=== PATIENT | male | born 1970 | race Caucasian/White ===

== ENCOUNTER 2017-08-28 08:24 | Observation (INO) | payer BC ==
[~2017-08-28] VITALS: Ht 177.8 cm; Wt 125.2 kg
[2017-08-28 09:00] VITALS: BP 179/107
[2017-08-28 09:09] VITALS: BP 179/107
[2017-08-28] MEDS: NIFEDIPINE CR 30 MG TAB PO SCH ×2 (10:25→20:54)
[2017-08-28 10:54] LABS: CREATINE KINASE 285 IU/L (30-200)
[2017-08-28 11:20] VITALS: BP 173/94
[2017-08-28] MEDS ORDERED: CARVEDILOL12.5 MG PO (12:10)
[2017-08-28] MEDS ORDERED: XANAX1 MG PO (12:12)
[2017-08-28 15:37] VITALS: BP 150/89
[2017-08-28] MEDS ORDERED: ACETAMINOPHEN 325 MG TAB PO PRN (17:45)
[2017-08-28] MEDS: HYDROCHLOROTHIAZIDE 25 MG TAB PO SCH (17:57)
[2017-08-28] MEDS: FAMOTIDINE 20 MG TAB PO SCH (17:57)
[2017-08-28 18:36] LABS: CREATINE KINASE 297 IU/L (30-200)
[2017-08-28 20:00] VITALS: BP 167/105
[2017-08-29] VITALS: BP 165/86
[2017-08-29] MEDS ORDERED: ZOLPIDEM TARTRATE 5 MG TAB PO PRN (00:15)
[2017-08-29 04:20] VITALS: BP 145/91
[2017-08-29 05:01] VITALS: BP 145/91
[2017-08-29] MEDS ORDERED: ASPIRIN325 MG PO (07:02)
[2017-08-29] MEDS ORDERED: FAMOTIDINE20 MG PO (07:02)
[2017-08-29] MEDS ORDERED: ESIDRIX25 MG PO (07:02)
[2017-08-29] MEDS ORDERED: COREG12.5 MG PO (07:02)
[2017-08-29] MEDS ORDERED: NIFEDIPINE ER30 M1 PO (07:02)
[2017-08-29] MEDS ORDERED: PRAVASTATIN SOD10 MG PO (07:03)
[2017-08-29 07:07] LABS: CHOL/HDL RATIO 4.2 (3.9-4.7)
[2017-08-29 07:08] LABS: EOSINOPHILS # (AUTO) 0.4 (0.0-0.4); EOSINOPHILS % 8.7 % (0.0-6.0); HEMATOCRIT 46.6 % (38.2-49.6); HEMOGLOBIN 16.9 g/dL (14.0-18.0); LYMPHOCYTES # (AUTO) 1.2 (1.0-3.2); LYMPHOCYTES % 28.7 % (18.0-39.1); MEAN CORPUSCULAR HEMOGLOBIN 32.5 pg (28-32); MEAN CORPUSCULAR HGB CONC 36.3 g/dL (31-35); MEAN CORPUSCULAR VOLUME 89.6 fL (81-99); MONOCYTES # (AUTO) 0.3 (0.2-0.8); NEUTROPHILS # (AUTO) 2.2 (2.1-6.9); NEUTROPHILS % 53.4 % (38.7-80.0); PLATELET COUNT 149 x10e3/uL (140-360); RED CELL DISTRIBUTION WIDTH 11.5 % (11.7-14.4)
[2017-08-29] MEDS: FAMOTIDINE 20 MG TAB PO SCH ×2 (07:15→08:04)
[2017-08-29 07:17] VITALS: BP 152/96
[2017-08-29 07:18] LABS: ANION GAP 13.2 mmol/L (8-16); BLOOD UREA NITROGEN 10 mg/dL (7-26); BUN/CREATININE RATIO 14 (6-25); CALCIUM 9.6 mg/dL (8.4-10.2); CARBON DIOXIDE 27 mmol/L (22-29); CHLORIDE 93 mmol/L (98-107); CREATININE, SERUM 0.74 mg/dL (0.72-1.25); EST GLOMERULAR FILTRATION RATE > 60 ML/MIN (60-); GLUCOSE 101 mg/dL (74-118); POTASSIUM 3.2 mmol/L (3.5-5.1); SODIUM 130 mmol/L (136-145)
[2017-08-29 07:21] LABS: THYROID STIMULATING HORMONE 1.563 uIU/mL (0.350-4.940)
[2017-08-29] MEDS ORDERED: SODIUM CHLORIDE 0.9% 500ML 500 ML IV ONE (07:41)
--- NOTE | 2017-08-29 07:52 | History and Physical ---
PRIMARY CARE PHYSICIAN: Dr. Alin Kim CHIEF COMPLAINT: Throat discomfort. HISTORY OF PRESENT ILLNESS: This is a 47-year-old man with a history of negative stress test 4 years ago and a history of general anxiety disorder, now developing throat discomfort and mild shortness of breath. Therefore, he came to the urgent care facility, and subsequently transitioned here for further evaluation and management. Cardiac enzymes obtained so far are negative. Throat discomfort has resolved. The patient smokes a half a pack of cigarettes per day. PAST MEDICAL HISTORY: Cigarette abuse, hypertension, hyperlipidemia, sleep apnea, on CPAP, generalized anxiety disorder. PAST SURGICAL HISTORY: Foot surgery. ALLERGIES: PER ELECTRONIC MEDICAL RECORD. FAMILY HISTORY/SOCIAL HISTORY: Patient is . He has 3 children. Occasional alcohol. Smokes half a pack to 1-pack of cigarettes per day. No illicits. MEDICATIONS: Per electronic medical record. REVIEW OF SYSTEMS: Denies any dizziness or chest pain. PHYSICAL EXAMINATION VITAL SIGNS: Reviewed. GENERAL: A tired-appearing man resting in bed. HEENT: Anicteric. Pupils respond to light. No oral lesions. CARDIOVASCULAR: Normal S1 and S2. LUNGS: Moderate breath sounds. ABDOMEN: Soft, nontender and nondistended. EXTREMITIES: No edema or calf tenderness. NEUROLOGICAL: Alert and oriented times 3. He moves all extremities. SKIN: Dry. PSYCHIATRIC: Normal affect. LABS: Reviewed. MEDICATIONS: Reviewed. ASSESSMENT: This is a 47-year-old man with: 1. Throat discomfort. 2. Hypertension. 3. Hyponatremia. 4. Hypokalemia. 5. Hyperlipidemia with LDL of 134, total cholesterol 219. 6. Elevated CPK/mild acute rhabdomyolysis. PLAN 1. Give fluids for acute rhabdomyolysis. 2. Cardiac enzymes negative. 3. Control blood pressure with beta silverio, calcium channel silverio and hydrochlorothiazide. 4. Throat discomfort has resolved. 5. Screen for diabetes. Hemoglobin A1c is 5.5. The patient's BMI was 39.6. His LDL is 134. 6. Cigarette abuse. I have counseled him on cigarette cessation and increased risk of heart attack and stroke with cigarette use. 7. Replace potassium. 8. The patient has received Lovenox and Pepcid for prophylaxis. 9. Disposition. Likely home later today. Job#: [id number] [place]
--- NOTE | 2017-08-29 07:56 | Discharge Summary ---
PRINCIPAL DIAGNOSES 1. Throat discomfort. 2. Hypokalemia. 3. Acute rhabdomyolysis. 4. Cigarette abuse. 5. Generalized anxiety disorder. 6. Hypertension. 7. Obesity with normal hemoglobin A1c. 8. Hyponatremia. SECONDARY DIAGNOSIS: Hypertension. CHIEF COMPLAINT: Throat discomfort. HISTORY OF PRESENT ILLNESS: A 47-year-old man who presented with throat pain. Refer to the H and P for further details. HOSPITAL COURSE: The patient was found to have elevated blood pressure. Beta silverio was continued. Calcium channel silverio and hydrochlorothiazide were added. Throat discomfort has resolved. He had acute rhabdomyolysis and received some IV fluids. He had cigarette abuse and counseled on cessation. Hypokalemia was replaced. He had mild hyponatremia. He had obesity and was screened for diabetes. Hemoglobin A1c is 5.5. The patient was treated with statin, beta silverio, calcium channel silverio, and hydrochlorothiazide. He is currently appropriate for discharge. DISCHARGE MEDICATIONS: Per electronic medical record. FOLLOWUP 1. Primary care doctor in 1 week. 2. I have referred him to Dr. Bennett of cardiology for outpatient evaluation. CORI ORTIZ MD Job#: [id number] [place]
[2017-08-29] MEDS ORDERED: ENOXAPARIN SOD INJ 40 MG/0.4 ML SYR SC SCH (08:00)
[2017-08-29] MEDS: NIFEDIPINE CR 30 MG TAB PO SCH (08:04)
[2017-08-29] MEDS: HYDROCHLOROTHIAZIDE 25 MG TAB PO SCH (08:04)
[2017-08-29] MEDS ORDERED: POTASSIUM CHLORIDE 20 MEQ TAB CR PO ONE (08:10)
[2017-08-29] MEDS ORDERED: CARVEDILOL 12.5 MG TAB PO SCH (09:00)
[2017-08-29] MEDS ORDERED: ASPIRIN 325 MG TAB PO SCH (09:00)
[2017-08-29 09:49] VITALS: BP 152/96
[2017-08-29 11:36] VITALS: BP 140/83
== END 2017-08-29 12:15 | disposition home or self-care (01) ==
LOC: PREINTOOBSV 08:28 → MED/SURG3 08:56
PROVIDERS: ADMIT Internal Medicine; ATTEND Internal Medicine
DX: R07.0 Pain in throat (principal); I10 Essential (primary) hypertension; E87.1 Hypo-osmolality and hyponatremia; E87.6 Hypokalemia; E78.5 Hyperlipidemia, unspecified; M62.82 Rhabdomyolysis; Z72.0 Tobacco use; E66.9 Obesity, unspecified; F41.1 Generalized anxiety disorder; Z88.0 Allergy status to penicillin; Z68.39 Body mass index [BMI] 39.0-39.9, adult
CPT/HCPCS: 36415 ×2; 80048; 80061; 82550; 82553; 83036; 84443; 84484; 85025; 93306; G0378 ×2; J1650